=== PATIENT | female | born 1995 | race Caucasian/White ===

== ENCOUNTER 2019-06-09 07:34 | Emergency (ER) | payer OTHER ==
[~2019-06-09] VITALS: Ht 167.6 cm; Wt 85.0 kg
[2019-06-09] MEDS ORDERED: ACET-2247 PO (07:40)
[2019-06-09] MEDS ORDERED: SODIUM CHLORIDE 0.9% 1,000 ML IV ONE (08:38)
[2019-06-09] MEDS ORDERED: ACETAMINOPHEN 500 MG TABLET PO ONE (08:46)
[2019-06-09] MEDS ORDERED: ACETAMINOPHEN 500 MG TABLET ONE (08:48)
[2019-06-09 08:54] LABS: BASOPHILS % (AUTO) 0.3 % (0.0-2.0); EOSINOPHILS % (AUTO) 1.4 % (1.0-6.0); HEMATOCRIT 41.8 % (36-46); LYMPHOCYTES # (AUTO) 0.8 K/uL (1.0-4.8); LYMPHOCYTES % (AUTO) 9.2 % (22.0-44.0); MEAN CORPUSCULAR HGB CONC 33.5 G/dL (31.0-37.0); MEAN CORPUSCULAR VOLUME 87 fL (80-100); MONOCYTES # (AUTO) 0.5 K/uL (0.1-1.0); MONOCYTES % (AUTO) 5.9 % (2.0-9.0); NEUTROPHILS # (AUTO) 6.8 K/uL (1.8-7.7); NEUTROPHILS % (AUTO) 83.2 % (40.0-70.0); PLATELET COUNT (AUTO) 199 K/uL (150-450); RED BLOOD CELL COUNT(AUTO) 4.83 MIL/uL (4.00-5.20); RED CELL DISTRIBUTION WIDTH 13.3 % (11.5-14.5)
[2019-06-09 09:06] LABS: ANION GAP 7 mmol/L (8-16); CALCIUM, TOTAL 8.7 mg/dL (8.8-10.5); CARBON DIOXIDE 26 mmol/L (22-29); CHLORIDE 101 mmol/L (98-107); CREATININE 0.78 mg/dL (0.60-1.30); GLOMERULAR FILTR. RATE CALC > 60 mL/min (>60); GLUCOSE,RANDOM 110 mg/dL (70-110); POTASSIUM 3.6 mmol/L (3.5-5.1); SODIUM SERUM 134 mmol/L (136-145); UREA NITROGEN, BLOOD 9 mg/dL (7-18)
[2019-06-09 09:12] LABS: ALANINE AMINOTRANSFERASE 19 U/L (12-78); ALBUMIN 3.6 g/dL (3.4-5.0); ALKALINE PHOSPHATASE 75 U/L (46-116); ASPARTATE AMINOTRANSFERASE 21 U/L (15-37); BILIRUBIN,TOTAL 0.5 mg/dL (0.1-1.0); LIPASE 192 U/L (73-393); TOTAL PROTEIN, SERUM 7.1 g/dL (6.4-8.2)
[2019-06-09 09:15] LABS: LACTIC ACID 0.8 mmol/L (0.4-2.0)
[2019-06-09 10:28] LABS: APPEARANCE,URINE CLEAR (CLEAR); BILIRUBIN,URINE NEGATIVE (NEGATIVE); GLUCOSE, URINE (UA) NEGATIVE (NEGATIVE); KETONES,URINE NEGATIVE (NEGATIVE); LEUKOCYTE ESTERASE ,URINE NEGATIVE (NEGATIVE); NITRATE,URINE NEGATIVE (NEGATIVE); OCCULT BLOOD,URINE NEGATIVE (NEGATIVE); PROTEIN,URINE NEGATIVE (NEGATIVE); UROBILINOGEN,URINE 0.2 mg/dL (<=1.0)
[2019-06-09 11:45] VITALS: BP 105/62
== END 2019-06-09 11:50 | disposition home or self-care (01) ==
LOC: EMS 07:37
DX: R19.7 Diarrhea, unspecified (principal); R11.2 Nausea with vomiting, unspecified; M79.10 Myalgia, unspecified site; R51 Headache
CPT/HCPCS: 36415; 80053; 81003; 83605; 83690; 85025; 96360; 99283; J7030